=== PATIENT | female | born 1930 | race Caucasian/White ===

== ENCOUNTER 2016-05-14 18:22 | Emergency (ER) | payer MEDICARE, BC ==
[2016-05-14 14:28] LABS: BASOPHILS 0.5 %; BASOPHILS ABSOLUTE 0.02 10/3/uL (0.0-0.16); EOSINOPHILS 1.2 %; EOSINOPHILS ABSOLUTE 0.05 10/3/uL (0.0-0.53); HEMATOCRIT 37.9 % (36.0-48.0); HEMOGLOBIN 12.8 g/dL (12.0-16.0); IMMATURE GRANULOCYTES 0.2 %; IMMATURE GRANULOCYTES ABSOLUTE 0.01 10/3/uL (0.0-0.11); LYMPHOCYTES 23.4 %; LYMPHOCYTES ABSOLUTE 1.01 10/3/uL (0.67-4.30); MANUAL DIFF NO %; MEAN CORPUS HGB CONC 33.8 g/dL (32.0-36.0); MEAN CORPUSCULAR VOLUME 94.8 fL (80-100); MONOCYTES ABSOLUTE 0.43 10/3/uL (0.21-1.20); NEUTROPHILS 64.7 %; PLATELET COUNT 130 10/3/uL (150-400); RBC DISTRIBUTION WIDTH 14.6 % (12.0-16.0); WHITE BLOOD CELLS 4.3 10/3/uL (4.5-10.5)
[2016-05-14 14:35] LABS: PARTIAL THROMBO TIME 36.7 SEC (22.5-37.2)
[2016-05-14 14:36] LABS: INTERNATIONAL NORMAL RATI 2.6 UNITS (-); PROTIME (NOT ORD) 27.2 SEC (12.0-14.5)
[2016-05-14 14:43] LABS: BUN (BLOOD UREA NITROGEN) 14 MG/DL (6-23); CALCIUM, SERUM 8.3 MG/DL (8.5-10.4); CHLORIDE, SERUM 105 MMOL/L (96-112); CO2 (CARBON DIOXIDE) 30 MMOL/L (24-34); CREATININE 0.88 MG/DL (0.55-1.02); GFR AFRICAN AMERICAN 68 ML/MIN (>=60); GFR NON AFRICAN AMERICAN 59 ML/MIN (>=60); GLUCOSE, SERUM 91 MG/DL (60-99); POTASSIUM, SERUM 3.8 MMOL/L (3.5-5.3); SODIUM, SERUM 143 MMOL/L (135-148)
[2016-05-14 14:46] LABS: CHEST PAIN PROFILE TAT 0 Hrs 22 Mins; TROPONIN I 0.05 NG/ML (<0.05)
[2016-05-14 14:53] LABS: ASCORBIC ACID (UR NOT ORDER) NEG (NEG); BILIRUBIN, URINE NEGATIVE (NEG); ER URINALYSIS TAT 0 Hrs 09 Mins; KETONE, URINE NEGATIVE (NEG); LEUKOCYTE ESTERASE(NOT OR NEG (NEG); NITRITE (URINE) NEG (NEG); WBC (NOT ORDERED) (RFLEX) < 1 (0-5)
[~2016-05-14 18:22] MED LIST: ASAB PO; AT25 PO; ATARAX50B PO; ATRONASAL3 NAS; B12 SC; BUM1 PO; BUM2 PO; BUMEX; C25 PO; C5 PO; COREG3 PO; CYANO1000T PO; DIGITEK0.125 MG PO; EEMT PO; ESTRATEST PO; FOLIC PO; ICAPS PO; KLOR-CON M2020 MEQ PO; L10 PO; LAN125 PO; LEVOTHYROXIN50 MCG PO; LIBRAX PO; LIBRIUM 5 MG CAP5 MG PO; MAGOX4 PO; METAMUCIL CAN7 OZ PO; MICRO-K10 MEQ PO; MOBIC15 MG PO; NASONEX NAS; NEXIUM40 PO; NORCO1 TA1 PO; OS500+D PO; PRAVAC PO; PRESERVISION A1 EACH PO; PRILO PO; PRIN2.5 PO; SINGULAIR1 PO; SPIRO25 PO; SYMBICORT 160/41 INH INH; SYN.05 PO; SYN075 PO; SYNTEST H.S. PO; T PO; ULTRAM50 PO; VITAMI13; VITAMIN C1000 MG PO; VITC500 PO; VITE PO; ZANAFLEX2 MG PO; ZYRTEC ALLGY10 MG PO
[2016-05-14 19:47] LABS: CPK 54 U/L (0-200)
[2016-05-14 19:48] LABS: CK-MB 1.4 NG/ML
[2016-08-09] MEDS ORDERED: LIBRAX PO (08:48)
[2016-08-09] MEDS ORDERED: SINGULAIR1 PO (08:48)
[2016-08-09] MEDS ORDERED: MAGOX4 PO (08:48)
[2016-08-09] MEDS ORDERED: SPIRO25 PO (08:49)
[2016-08-12] MEDS ORDERED: C5 PO (12:12)
== END 2016-05-14 19:45 | disposition home or self-care (01) ==
LOC: ER 18:22
PROVIDERS: Emergency Medicine
DX: S00.93XA Contusion of unspecified part of head, initial encounter (principal); Z87.891 Personal history of nicotine dependence; I11.0 Hypertensive heart disease with heart failure; I50.9 Heart failure, unspecified; K21.9 Gastro-esophageal reflux disease without esophagitis; Z88.2 Allergy status to sulfonamides; Z88.1 Allergy status to other antibiotic agents; Z79.899 Other long term (current) drug therapy; Z79.82 Long term (current) use of aspirin; W19.XXXA Unspecified fall, initial encounter
CPT/HCPCS: 70450; 71020; 72125; 80048; 81001; 82550; 82553; 83735; 83880; 84484; 85025; 85610; 85730; 93005; 99285; A9270-GY